=== PATIENT | male | born 1965 | race Caucasian/White ===

== ENCOUNTER → 2018-02-20 08:32 | Outpatient (CLI) | payer BC, SELFPAY ==
--- NOTE | 2018-02-20 | CA_ITS ---
PROCEDURE: 2-D M-mode and color Doppler study INDICATIONS FOR THE TEST: Chest pain+ COPD Heart Murmur Tobacco Smoking Palpitations Fatigue Syncope Edema Hypertension+Diabetes Mellitus Rheumatic Fever SOB DENISE Obesity Hyperlipidemia+ Family History HD+ Additional History PATIENT INFORMATION HEIGHT: 73 WEIGHT: 235 GENDER: Male B/P: 143/92 2-D/M-MODE INTERPRETATION: 2-D MEASUREMENTS OBSERVED VALUES IN CMS Right Ventricular Dimension (RVDd) 2.8 Interventricular Septum (Thickness)(IVsd) 0.9 Left Ventricular Internal Dimensions(LVIDd) 5.2 Left Ventricular Posterior Wall (Thickness)(LVPWd) 0.9 Aortic Root 3.2 Aortic Cusp Separation 2.4 Left Atrial Dimensions (LAD) 3.8 2D 1. Left atrium is mildly enlarged, left ventricle is normal size, mild concentric left ventricular hypertrophy, visually estimated ejection fraction 55% with no regional wall motion abnormality. 2. The right atrium and right ventricle are normal size and contractility. 3. The aortic valve is minimally thickened and fibrosed. 4. The mitral and tricuspid valvular grossly normal. 5. The pulmonic valve is poorly visualized. 6. No significant pericardial effusion noted. DOPPLER INTERROGATION: Doppler interrogation of the aortic, mitral and tricuspid valvular presence of trace aortic, mild mitral and tricuspid regurgitation tricuspid regurgitation jet velocity is inadequate for calculation of the right ventricular systolic pressure, grade 1 diastolic dysfunction seen without tissue Doppler evidence of raised left atrial pressure. CONCLUSION: 1. Mildly enlarged left atrium, normal left ventricular size, visually estimated ejection fraction 55% with no regional wall motion abnormality, mild concentric left ventricular hypertrophy seen, grade 1 diastolic dysfunction seen without tissue Doppler evidence of raised left atrial pressure. 2. Trace aortic, mild mitral and tricuspid regurgitation 3. No significant pericardial effusion.
== END ==
PROVIDERS: PCP Emergency Medicine; Visit Provider Internal Medicine Cardiovascular Disease
DX: R07.2 Precordial pain (principal)
CPT/HCPCS: 93306

== ENCOUNTER 2019-07-25 04:26 | Observation (INO) ==
--- NOTE | 2019-07-25 04:43 | Emergency Department Note ---
ED Disposition Clinical Impression: Unstable angina pectoris, Obesity (BMI 30.0-34.9) HTN (hypertension) Qualifiers: Hypertension type: essential hypertension Qualified Code(s): I10 - Essential (primary) hypertension Disposition: Admitted as Observation Condition on Discharge: Good Referrals: Provider,Referral, [Primary Care Provider] - - Critical Care Critical Care Time: No Attestation: On 07/25/19, the high probability of a clinically significant, sudden or life threatening deterioration of the following system(s) required my full and direct attention, intervention and personal management. The time I documented below is in addition to time spent performing reported procedures but includes the following listed in this critical care notation. Medical Decision Making - Medical Records Medical records reviewed: Yes: I reviewed the patient's medical records. - Jv Inquiry Pt receiving controlled substance: No Vital Signs: 07/25/19 04:28 07/25/19 04:51 07/25/19 05:15 Temperature 98.3 F Temperature Source Oral Pulse Rate [Right] 107 H 84 89 Respiratory Rate 18 18 14 Blood Pressure [Right Arm] 132/98 H 132/85 135/84 Blood Pressure Mean [Right Arm] 109 100 101 Blood Pressure Source [Right Arm] Automatic Cuff Blood Pressure Position [Right Arm] Supine 02 Sat by Pulse Oximetry 96 93 L 97 Oxygen Delivery Method Room Air Room Air Nasal Cannula Oxygen Flow Rate (LPM) 2 - Lab Data Lab results reviewed: Yes: I reviewed the patient's lab results. Lab Results 07/25/19 04:31: WBC 10.9 H, RBC 5.77, Hgb 16.8, Hct 50.0, MCV 86.7, MCH 29.2, MCHC 33.6, RDW 13.5, Plt Count 234, MPV 8.3, Neut % (Auto) 74.7, Lymph % (Auto) 17.0, [place] % (Auto) 5.9, Eos % (Auto) 2.1, Baso % (Auto) 0.4, Neut # (Auto) 8.1 H, Lymph # (Auto) 1.8, [place] # (Auto) 0.6, Eos # (Auto) 0.2, Baso # (Auto) 0.0 07/25/19 04:31: Sodium 137, Potassium 4.0, Chloride 104, Carbon Dioxide 24, Anion Gap 13.0, BUN 19, Creatinine 0.90, Estimated Creat Clear 144, Estimated GFR 88, Est GFR ( Amer) 106, Glucose 129 H, Calcium 9.6, Troponin I < 0.01 Result diagrams: 07/25/19 04:31 07/25/19 04:31 Orders (Tests/Meds): ED MEDICATIONS Generic Name Dose Route Start Last Admin Trade Name Freq PRN Reason Stop Dose Admin Sodium Chloride 1,000 mls @ 999 mls/hr 07/25/19 04:45 07/25/19 04:49 Sod Chlor 0.9% 1000ml Bag IV 07/25/19 05:45 999 mls/hr .Q1H1M RADHA Administration Discontinued Medications Generic Name Dose Route Start Last Admin Trade Name Freq PRN Reason Stop Dose Admin Aspirin 324 mg 07/25/19 04:36 07/25/19 04:48 Aspirin 81mg Chewable Tablet PO 07/25/19 04:37 324 mg ONCE ONE Administration Metoprolol Tartrate 50 mg 07/25/19 05:10 07/25/19 05:12 Lopressor 50mg Tablet PO 07/25/19 05:11 50 mg ONCE ONE Administration Nitroglycerin 0.4 mg 07/25/19 04:36 07/25/19 04:48 Nitrostat 0.4mg Sl Tablet SL 07/25/19 04:37 1 tab ONCE ONE Administration Ondansetron HCl 4 mg 07/25/19 04:36 07/25/19 04:48 Zofran 4mg/2ml Vial IV 07/25/19 04:37 4 mg ONCE ONE Administration Ticagrelor 180 mg 07/25/19 05:19 Brilinta 90mg Tablet PO 07/25/19 05:20 ONCE ONE ORDERS Category Date Time Status Chest XR -- portable [XR chest portable] Stat Exams 07/25/19 04:38 Taken Troponin I Q3H Lab 07/25/19 07:45 Ordered Troponin I Q3H Lab 07/25/19 10:45 Ordered - Radiology Data #1 Image(s): Chest Image Reviewed: Yes I reviewed the patient's radiology image Preliminary Findings: Normal/NAD - ECG Data Tracing #1 Normal Sinus Rhythm: Yes Ischemic changes: non-specific ST-T wave changes - Physician Consults Physician Consulted: alicia Reason -: Pt condition Additional Consult: carla Reason -: Admission Chest Pain HPI - General Chief Complaint: Chest Pain Stated Complaint: chest pain Time Seen by Provider: 07/25/19 04:35 Mode of Arrival: Ambulatory Source of Information: Patient, Medical Record Limitations: No Limitations Description of Symptoms (Recalled from ER Triage Doc. by RN): Pt states his chest pain started about an hour ago 8 of 10 pain, took a nitro at home and pain now 2 of 10 - History of Present Illness HPI narrative: acute onset of chest pain - pressure lasting about 20-25 min - relieved with ntg - has has pain in 2018 with neg cxt - has positive risk factors MD complaint: chest pain indicative of cardiac Onset (ago): hour(s) Duration: now resolved Activity at onset: awoke with symptoms Pain location: substernal Severity: moderate Severity scale (1-10): 8 Quality: heaviness Relieving factors: nitroglycerin Associated symptoms: nausea, diaphoresis, dyspnea Risk Factors for CAD: Hypertension, Hypercholesterolemia, Family Hx of CAD Treatments prior to or on arrival for Cardiac Chest Pain: nitroglycerin - KULDEEP Score for Non-Stemi Age of Patient: 50-59 years old Heart Rate: 90-109 bpm Systolic Blood Pressure: 120-139 mmhg Serum Creatinine: 0.80-1.19 mg/dl CHF [place] Class: I-No CHF Other Risk Factors: None Non-Stemi Risk Score: 97 - Related Data Prior Cardiac Testing/Procedures: Echocardiogram Home Medications Medication Instructions Recorded Confirmed Aspirin [Aspir 81] 81 mg PO DAILY 07/25/19 07/25/19 Benazepril HCl 10 mg PO DAILY 07/25/19 07/25/19 Simvastatin 20 mg PO DAILY 07/25/19 07/25/19 hydroCHLOROthiazide 12.5 mg PO DAILY 07/25/19 07/25/19 [Hydrochlorothiazide 12.5mg Tab] Allergies Allergy/AdvReac Type Severity Reaction Status Date / Time No Known Allergies Allergy Unverified 07/25/19 04:31 [facility] History - Hepatitis A Screen Drug use history?: No High risk sexual behaviors?: No History of sexually transmitted infection?: No Currently employed?: No Childcare worker?: No Do you have indoor plumbing?: Yes Do you have electricity?: Yes Attestation statement:: This patient has been screened for Hepatitis A risk factors. I have reviewed the patient's past medical history: Yes Medical History: Denies:: Diabetes Mellitus Type 1, Diabetes Mellitus Type 2, Internal Pacemaker Other Surgeries: No: Pacemaker - Social History Alcohol Intake: never Occupational Status: employed ROS Obtained: Yes All systems reviewed & no additional complaints - Constitutional Constitutional: Denies fever(s) - Eyes Eyes: Denies change in vision - ENT Ears, Nose, Mouth, and Throat: Denies sore throat - Cardiovascular Cardiovascular: Reports as per HPI, Reports chest pain, Denies dyspnea, Reports radiating jaw, neck or arm pain - Respiratory Respiratory: No cough - Gastrointestinal Gastrointestingal: Reports: nausea - Genitourinary Male Genitourinary: Denies hematuria - Musculoskeletal Musculoskeletal: Denies joint pain - Integumentary/Breasts Skin/Breast: Denies rash - Neurologic Neurologic: Denies seizure-like activity Physical Exam - General General appearance: alert, obese - Head Head exam: normocephalic - Eye Eye exam: Present: PERRL, EOMI. Absent: scleral icterus - ENT ENT exam: Present: mucous membranes moist - Neck Neck exam: Present: trachea midline - Respiratory Respiratory exam: Present: normal lung sounds bilaterally. Absent: respiratory distress - Cardiovascular Cardiovascular exam: Present: regular rate, systolic murmur. Absent: +S4 - Abdominal Exam Abdominal exam: Present: soft - Extremities Exam Extremities exam: Present: full ROM - Neurological Exam Neurological exam: Present: alert, oriented X3, CN II-XII intact - Psychiatric Psychiatric exam: Present: normal affect - Skin Skin exam: Absent: rash
[2019-07-25 04:46] LABS: Basophils % 0.4 % (0.1-2.0); Eosinophils # 0.2 K/mm3 (0.0-0.4); Eosinophils % 2.1 % (0.1-12.0); Hemoglobin 16.8 g/dL (14.1-18.0); Lymphocytes # 1.8 K/mm3 (0.7-4.5); Mean Corpuscular HGB Conc 33.6 g/dL (31.8-35.4); Mean Corpuscular Volume 86.7 fl (80-94); Mean Platelet Volume 8.3 fl (7.4-10.4); Monocytes # 0.6 K/mm3 (0.1-1.0); Monocytes % 5.9 % (1.7-9.3); Neutrophils # 8.1 K/mm3 (1.8-7.8); Neutrophils % 74.7 % (37.0-80.0); Platelet Count 234 K/mm3 (142-424); Red Blood Count 5.77 M/mm3 (4.60-6.20); Red Cell Distribution Width 13.5 % (11.5-17.5); White Blood Count 10.9 K/mm3 (4.8-10.8)
[2019-07-25 04:50] LABS: Blood Urea Nitrogen 19 mg/dl (9-20); Calcium 9.6 mg/dl (8.4-10.2); Carbon Dioxide 24 mmol/L (22.0-30.0); Chloride 104 mmol/L (98-107); Glucose 129 mg/dl (74-100); Sodium 137 mmol/L (136-145)
[2019-07-25 05:36] LABS: Chol/HDL Ratio 3.7 (1-3.5)
--- NOTE | 2019-07-25 07:22 | Pharmacy Consult Notes ---
[facility] Pharmacy VTE Monitoring - Patient Demographics Admission date: 07/25/19 Report Date: 07/25/19 Time: 07:21 Allergies/Adverse Reactions: Patient Allergies No Known Allergies Allergy (Unverified 07/25/19 04:31) Height: 1.85 m Weight: 104.95 kg Patient Problems: Current Active Problems Unstable angina pectoris (Acute) Obesity (BMI 30.0-34.9) (Acute) HTN (hypertension) (Acute) - VTE Risk Labs: VTE Related Lab Results Hgb 16.8 g/dL (14.1-18.0) 07/25/19 04:31 Hct 50.0 % (42.0-52.0) 07/25/19 04:31 Plt Count 234 K/mm3 (142-424) 07/25/19 04:31 BUN 19 mg/dl (9-20) 07/25/19 04:31 Creatinine 0.90 mg/dl (0.66-1.25) 07/25/19 04:31 Estimated Creat Clear 144 mL/min (50-200) 07/25/19 04:31 VTE Score: 2 - Prophylaxis Types of VTE Prophylaxis: TEDS Knee High (JOSÉ ANTONIO HOSE ORDER PLACED)
--- NOTE | 2019-07-25 08:38 | History & Physical Report ---
*Admission Date: 07/25/19 *Chief complaint: Chest pain/acute coronary syndrome *History of present illness: 54-year-old white male with history of hypertension, hyperlipidemia and remote history of chest pain syndrome about 3 years ago that was worked up with a treadmill-based stress test which was reportedly negative. Since that time patient is felt well but awoke early this morning with a crushing sensation on his chest with associated radiation into the left arm. [place] chilled but not sweaty. Did not feel short of air. Took a nitroglycerin tablet on the way to the hospital and after the second nitroglycerin aspirin in the emergency department he felt better. Given risk factors, and a significant family history for heart disease he was admitted to hospital for left heart catheterization given his negative and possibly falsely negative stress testing results 2 years ago. [facility] History I have reviewed the patient's past medical history: Yes Medical History: Reports:: Hyperlipidemia, Hypertension Denies:: Cancer, Diabetes Mellitus Type 1, Diabetes Mellitus Type 2, Internal Pacemaker, MRSA *Have you ever received a pneumonia vaccine?: No *Have you received a flu vaccine this season?: Yes Other Surgeries: Yes: No Previous Surgery. No: Pacemaker Amputation: No Fractures: No - *Social History Educational Level: Completed College Smoking Status: Never smoker Alcohol Intake: never *Occupational Status:: employed Housing: house Household Members: spouse, children *Travel in the last 8 weeks: Outside the [facility] Family Hx:: Coronary Artery Disease, Heart Attack Comment: Significant history of coronary disease. Father has had 2 bypass surge flako. Grandfather and uncle of myocardial infarction at age 50 Review of Systems - Review of Systems Review of systems:: pertinent systems reviewed and negative unless documented below - *Neurologic Denies seizure-like activity Meds Home Medications Medication Instructions Recorded Confirmed Type Aspirin [Aspir 81] 81 mg PO DAILY 07/25/19 07/25/19 History Benazepril HCl 10 mg PO DAILY 07/25/19 07/25/19 History Simvastatin 20 mg PO DAILY 07/25/19 07/25/19 History hydroCHLOROthiazide 18.75 mg PO DAILY 07/25/19 07/25/19 History [Hydrochlorothiazide 12.5mg Tab] Allergies Allergy/AdvReac Type Severity Reaction Status Date / Time No Known Allergies Allergy Unverified 07/25/19 04:31 Exam Vital signs and Labs for Last 24 Hours: Temp Pulse Resp BP Pulse Ox 98.3 F 73 17 131/80 96 07/25/19 07:51 07/25/19 07:51 07/25/19 07:51 07/25/19 07:51 07/25/19 08:12 Laboratory Results - last 24 hr 07/25/19 04:31: WBC 10.9 H, RBC 5.77, Hgb 16.8, Hct 50.0, MCV 86.7, MCH 29.2, MCHC 33.6, RDW 13.5, Plt Count 234, MPV 8.3, Neut % (Auto) 74.7, Lymph % (Auto) 17.0, [place] % (Auto) 5.9, Eos % (Auto) 2.1, Baso % (Auto) 0.4, Neut # (Auto) 8.1 H, Lymph # (Auto) 1.8, [place] # (Auto) 0.6, Eos # (Auto) 0.2, Baso # (Auto) 0.0 07/25/19 04:31: Sodium 137, Potassium 4.0, Chloride 104, Carbon Dioxide 24, Anion Gap 13.0, BUN 19, Creatinine 0.90, Estimated Creat Clear 144, Estimated GFR 88, Est GFR ( Amer) 106, Glucose 129 H, Calcium 9.6, Troponin I < 0.01 07/25/19 04:31: Triglycerides 126, Cholesterol 147, LDL Cholesterol Direct 88.58 L, VLDL Cholesterol 25, HDL Cholesterol 40, Cholesterol/HDL Ratio 3.7 H I & O for Last 24 hours: Intake & Output 07/22/19 07/23/19 07/24/19 07/25/19 11:59 11:59 11:59 11:59 Intake Total 1000 / 1000 Balance 1000 / 1000 Weight 231 lb 6 oz - *Routine HEENT Exam Head: Present: normocephalic Eye: Present: EOMI, PERRL ENT: Present: mucous membranes moist - *Routine Neck Exam Present: supple. Absent: lymphadenopathy - *Routine Respiratory Exam Present: CTA bilaterally - *Routine Cardiovascular Exam Present: RRR - *Routine Abdominal Exam Present: soft, normoactive bowel sounds. Absent: tenderness - *Routine Extremities Exam Absent: cyanosis, clubbing, edema - *Routine Skin Exam Present: warm. Absent: rash - *Routine Neurological Exam Present: alert, oriented X3 Assessment and Plan (1) HTN (hypertension) Current visit: Yes Status: Acute Qualifiers: Hypertension type: essential hypertension Qualified Code(s): I10 - Essential (primary) hypertension Category: Medical Code(s): I10 - Essential (primary) hypertension (2) Unstable angina pectoris Current visit: Yes Status: Acute Category: Medical Code(s): I20.0 - Unstable angina Agree with admission. Troponins negative. Agree with left heart cath. Medication adjustment/prognosis/further diagnostic testing after results of left heart cath today. (3) Hyperlipidemia Current visit: Yes Status: Acute Category: Medical Code(s): E78.5 - Hyperlipidemia, unspecified
--- NOTE | 2019-07-25 13:03 | Discharge Summary ---
General - General Admission date:: 07/25/19 Discharge date: 07/25/19 HPI HPI: 54-year-old white male with history of hypertension, hyperlipidemia and remote history of chest pain syndrome about 3 years ago that was worked up with a treadmill-based stress test which was reportedly negative. Since that time patient is felt well but awoke early this morning with a crushing sensation on his chest with associated radiation into the left arm. [place] chilled but not sweaty. Did not feel short of air. Took a nitroglycerin tablet on the way to the hospital and after the second nitroglycerin aspirin in the emergency department he felt better. Given risk factors, and a significant family history for heart disease he was admitted to hospital for left heart catheterization given his negative and possibly falsely negative stress testing results 2 years ago. Hospital Course Hospital Course: Patient was admitted to hospital. Ruled out for [facility] and left heart catheterization was done because of significant risk factors and symptomatic presentation as noted. Results noted below: ANGIOGRAPHIC RESULTS The left main artery Normal The left anterior descending artery Has proximal and mid vessel mild vascular ectasia accompanied by slow flow The circumflex artery Nondominant with mild luminal irregularities 10% stenosed The right coronary artery Is a large dominant vessel with moderate diffuse vascular ectasia accompanied by slow AMY II flow The FARIA ventriculogram reveals Preserved at 60% The left ventricular end-diastolic pressure 15 mmHg IMPRESSION [id number] coronary disease as described above Mild to moderate vascular ectasia accompanied by slow flow consistent with endothelial dysfunction Preserved ejection fraction Mildly elevated LVEDP PLAN 1. Risk factor modification 2. Treatment of endothelial dysfunction with long-acting nitrates calcium channel blockers and possibly the addition of Ranexa 3. Would also consider noncardiac etiologies for symptomatology Electronically signed by : Jj Gage, 07/25/2019 11:11:08 Patient did well after the procedure. He will be discharged home. I will start omeprazole for prevention of reflux induced nocturnal pain. We will forward records to his regular physician to consider adding long-acting nitrates or calcium channel blockers in the event angina would occur in the future. Objective Vital signs: Temp Pulse Resp BP Pulse Ox 98.6 F 83 16 142/80 H 96 07/25/19 13:00 07/25/19 13:00 07/25/19 13:00 07/25/19 13:00 07/25/19 13:00 no acute distress - *Routine HEENT Exam Head: Present: normocephalic Eye: Present: EOMI, PERRL ENT: Present: mucous membranes moist - *Routine Neck Exam Present: supple - *Routine Respiratory Exam Present: CTA bilaterally - *Routine Cardiovascular Exam Present: RRR - *Routine Abdominal Exam Present: soft, normoactive bowel sounds. Absent: tenderness - *Routine Extremities Exam Absent: cyanosis, clubbing, edema - *Routine Skin Exam Present: warm. Absent: rash - Detailed Eye Exam Eyelids: Bilateral normal inspection Results Labs on day of discharge: Labs from last 24 hours 07/25/19 07/25/19 07/25/19 09:25 04:31 04:31 WBC RBC Hgb Hct MCV MCH MCHC RDW Plt Count MPV Neut % (Auto) Lymph % (Auto) [place] % (Auto) Eos % (Auto) Baso % (Auto) Neut # (Auto) Lymph # (Auto) [place] # (Auto) Eos # (Auto) Baso # (Auto) Sodium 137 Potassium 4.0 Chloride 104 Carbon Dioxide 24 Anion Gap 13.0 BUN 19 Creatinine 0.90 Estimated Creat Clear 144 Estimated GFR 88 Est GFR ( Amer) 106 Glucose 129 H Calcium 9.6 Troponin I < 0.01 < 0.01 Triglycerides 126 Cholesterol 147 LDL Cholesterol Direct 88.58 L VLDL Cholesterol 25 HDL Cholesterol 40 Cholesterol/HDL Ratio 3.7 H 07/25/19 04:31 WBC 10.9 H RBC 5.77 Hgb 16.8 Hct 50.0 MCV 86.7 MCH 29.2 MCHC 33.6 RDW 13.5 Plt Count 234 MPV 8.3 Neut % (Auto) 74.7 Lymph % (Auto) 17.0 [place] % (Auto) 5.9 Eos % (Auto) 2.1 Baso % (Auto) 0.4 Neut # (Auto) 8.1 H Lymph # (Auto) 1.8 [place] # (Auto) 0.6 Eos # (Auto) 0.2 Baso # (Auto) 0.0 Sodium Potassium Chloride Carbon Dioxide Anion Gap BUN Creatinine Estimated Creat Clear Estimated GFR Est GFR ( Amer) Glucose Calcium Troponin I Triglycerides Cholesterol LDL Cholesterol Direct VLDL Cholesterol HDL Cholesterol Cholesterol/HDL Ratio DS: Diagnosis - Discharge Diagnosis (1) HTN (hypertension) Status: Chronic (2) Unstable angina pectoris Status: Ruled-out (3) Hyperlipidemia Status: Chronic Discharge Plan - Patient Discharge Instructions ACTIVITY: Continue current activity DIET: continue same diet Patient Instructions: Heart-Healthy Diet, DI for Angina, DI for Cardiac Catheterization, DI for High Blood Pressure, DI for Surgical Site Infection, DI for Chest Pain - Follow up Plan Follow up with: Filiberto Orona MD [Referring] - 1 month Disposition: Home, Self-Detention Medications: Home Medications Medication Instructions Recorded Confirmed Type Aspirin [Aspir 81] 81 mg PO DAILY 07/25/19 07/25/19 History Benazepril HCl 10 mg PO DAILY 07/25/19 07/25/19 History Omeprazole [Omeprazole 20mg 20 mg PO PC #30 cap 07/25/19 Rx Capsule] Simvastatin 20 mg PO DAILY 07/25/19 07/25/19 History hydroCHLOROthiazide 18.75 mg PO DAILY 07/25/19 07/25/19 History [Hydrochlorothiazide 12.5mg Tab] Prescriptions/Medication Reconciliation: New Omeprazole [Omeprazole 20mg Capsule] 20 mg PO PC #30 cap Continued Simvastatin 20 mg PO DAILY Benazepril HCl 10 mg PO DAILY hydroCHLOROthiazide [Hydrochlorothiazide 12.5mg Tab] 18.75 mg PO DAILY Aspirin [Aspir 81] 81 mg PO DAILY - Problem Reconciliation Problems Reviewed?: Yes
--- NOTE | 2019-07-26 17:30 | Electrocardiograph Report ---
APPROVED REPORT Exam: Resting ECG HR:97 bpm ECG Measurements Heart Rate 97 AXES [place] 170 P 62 QRSd 92 QRS 82 QT 352 T66 QTc 447 <Conclusion> Normal sinus rhythm Normal ECG Electronically signed by : Ayush Almeida, 07/26/2019 17:30:36
== END 2019-07-25 14:58 | disposition home or self-care (01) ==
LOC: ER 04:26 → 2ND 04:26
PROVIDERS: ADMIT Internal Medicine Adolescent Medicine; ATTEND Internal Medicine Adolescent Medicine
CPT/HCPCS: 71010; 71045; 80048; 80061; 84484; 85025; 93005; 93458; 96365; 96375; 99152; 99284; C1725; C1769; G0378; J1644; J2405; Q9967

== ENCOUNTER 2023-06-09 08:09 | Outpatient (CLI) | payer OTHER, SELFPAY ==
[2023-06-09 08:18] LABS: Microscopic, Urine URINE MICROSCOPIC (MICROSCOPIC)
[2023-06-09 08:36] LABS: Basophils % 0.4 % (0.1-2.0); Eosinophils # 0.1 K/mm3 (0.0-0.4); Eosinophils % 2.2 % (0.1-12.0); Hematocrit 50.8 % (42.0-52.0); Hemoglobin 17.9 g/dL (14.1-18.0); Lymphocytes # 1.8 K/mm3 (0.7-4.5); Lymphocytes % 33.1 % (10-50); Mean Corpuscular HGB Conc 35.3 g/dL (31.8-35.4); Mean Corpuscular Hemoglobin 30.6 pg (27.0-31.2); Mean Corpuscular Volume 86.7 fl (80-94); Monocytes # 0.5 K/mm3 (0.1-1.0); Monocytes % 8.2 % (1.7-9.3); Neutrophils # 3.1 K/mm3 (1.8-7.8); Neutrophils % 56.1 % (37.0-80.0); Platelet Count 198 K/mm3 (142-424); Red Blood Count 5.86 M/mm3 (4.60-6.20); Red Cell Distribution Width 13.5 % (11.5-17.5); White Blood Count 5.5 K/mm3 (4.8-10.8)
[2023-06-09 08:45] LABS: Appearance,Urine CLEAR (Clear); Bilirubin,Urine Negative (Negative); Blood, Urine 1+ (Negative); Color,Urine YELLOW (Yellow); Glucose,Urine (UA) Negative (Negative); Ketones,Urine Negative (Negative); Leukocyte Esterase,Urine Negative (Negative); Nitrate,Urine Negative (Negative); Protein,Urine Negative (Negative); Specific Gravity, Urine 1.025 (1.005-1.030); Urobilinogen,Urine 0.2 EU/dl (0.2)
[2023-06-09 08:59] LABS: Bacteria,Urine Trace /lpf; RBC,Urine Occasional #/hpf (0-3); Squamous Epithelial Cell,Urine Occasional #/hpf (0-5)
[2023-06-09 09:04] LABS: Alanine Aminotransferase 32 U/L (12-78); Albumin Level 4.5 g/dl (3.5-5.0); Alkaline Phosphatase 65 U/L (38-126); Anion Gap 9.3 mEq/L (5-15); Aspartate Amino Transferase 28 U/L (17-59); Blood Urea Nitrogen 25 mg/dl (9-20); Calcium 9.7 mg/dl (8.4-10.2); Carbon Dioxide 26 mmol/L (22.0-30.0); Chloride 107 mmol/L (98-107); Cholesterol 151 mg/dl (140-200); Estimated Glomerular Filt Rate 87 ml/min (>60); GFR (African American) 105 ML/MIN (>60); Globulin 2.2 g/dL (1.3-3.2); Glucose 137 mg/dl (74-100); HDL Cholesterol 38 mg/dl (40-60); Potassium 4.3 mmoL/L (3.5-5.1); Sodium 138 mmol/L (136-145); Total Protein,Serum 6.7 g/dl (6.3-8.2); Triglycerides 119 mg/dl (30-150); VLDL Cholesterol 24 mg/dL (0-40)
[2023-06-09 09:06] LABS: Erythrocyte Sedimentation Rate 2 mm/hr (0-20)
[2023-06-09 09:16] LABS: Direct LDL Cholesterol 78.67 mg/dL (100-129)
[2023-06-09 09:36] LABS: Prostate Specific Ag Screen 1.8 ng/ml (0.0-4.0); Thyroid Stimulating Hormone 1.41 uIU/mL (0.465-4.68)
[2023-06-09 10:11] LABS: Vitamin B12 594 pg/mL (239-931)
== END 2023-06-09 23:59 ==
LOC: LAB 08:11
PROVIDERS: PCP Emergency Medicine; Visit Provider Emergency Medicine
DX: I10 Essential (primary) hypertension (principal); E78.5 Hyperlipidemia, unspecified; M19.90 Unspecified osteoarthritis, unspecified site; N40.1 Benign prostatic hyperplasia with lower urinary tract symptoms; E66.9 Obesity, unspecified; Z12.5 Encounter for screening for malignant neoplasm of prostate; Z82.49 Family history of ischemic heart disease and other diseases of the circulatory system; Z79.899 Other long term (current) drug therapy
CPT/HCPCS: 36415; 80053; 80061; 81001; 82607; 82746; 84443; 85025; 85651; G0103

== ENCOUNTER 2024-07-01 09:00 | Outpatient (CLI) | payer OTHER, SELFPAY ==
[2024-07-01 09:06] LABS: Microscopic, Urine URINE MICROSCOPIC (MICROSCOPIC)
[2024-07-01 09:23] LABS: Basophils % 0.6 % (0.1-2.0); Eosinophils # 0.2 K/mm3 (0.0-0.4); Eosinophils % 3.7 % (0.1-12.0); Hemoglobin 16.9 g/dL (14.1-18.0); Lymphocytes # 1.4 K/mm3 (0.7-4.5); Mean Corpuscular HGB Conc 34.5 g/dL (31.8-35.4); Mean Corpuscular Hemoglobin 29.3 pg (27.0-31.2); Mean Corpuscular Volume 84.9 fl (80-94); Mean Platelet Volume 10.7 fl (7.4-10.4); Monocytes # 0.5 K/mm3 (0.1-1.0); Monocytes % 9.4 % (1.7-9.3); Neutrophils # 2.8 K/mm3 (1.8-7.8); Neutrophils % 57.1 % (37.0-80.0); Platelet Count 218 K/mm3 (142-424); Red Blood Count 5.77 M/mm3 (4.60-6.20); Red Cell Distribution Width 12.6 % (11.5-17.5); White Blood Count 4.9 K/mm3 (4.8-10.8)
[2024-07-01 09:52] LABS: Erythrocyte Sedimentation Rate 1 mm/hr (0-20)
[2024-07-01 11:27] LABS: Alanine Aminotransferase 33 U/L (12-78); Albumin Level 4.6 g/dl (3.5-5.0); Albumin/Globulin Ratio 2.3 (1.1-1.8); Alkaline Phosphatase 59 U/L (38-126); Anion Gap 12.3 mEq/L (5-15); Appearance,Urine Clear (Clear); Aspartate Amino Transferase 29 U/L (17-59); Bilirubin,Total 1.1 mg/dl (0.2-1.3); Blood Urea Nitrogen 21 mg/dl (9-20); Calcium 9.1 mg/dl (8.4-10.2); Carbon Dioxide 21 mmol/L (22.0-30.0); Chloride 109 mmol/L (98-107); Chol/HDL Ratio 3.5 (1-3.5); Cholesterol 135 mg/dl (140-200); Color,Urine Yellow (Yellow); Estimated Glomerular Filt Rate 86 ml/min (>60); GFR (African American) 105 ML/MIN (>60); Glucose 124 mg/dl (74-100); Glucose,Urine (UA) Negative (Negative); HDL Cholesterol 39 mg/dl (40-60); PH,Urine 6.5 (5.0-8.5); Potassium 4.3 mmoL/L (3.5-5.1); Protein,Urine Negative (Negative); Sodium 138 mmol/L (136-145); Specific Gravity, Urine >= 1.030 (1.005-1.030); Total Protein,Serum 6.6 g/dl (6.3-8.2); Triglycerides 85 mg/dl (30-150); VLDL Cholesterol 17 mg/dL (0-40)
[2024-07-01 11:28] LABS: Bilirubin,Urine Negative (Negative); Blood, Urine Trace (Negative); Ketones,Urine Negative (Negative); Leukocyte Esterase,Urine Negative (Negative); Nitrate,Urine Negative (Negative)
[2024-07-01 11:35] LABS: Squamous Epithelial Cell,Urine Occasional #/hpf (0-5); WBC,Urine Occasional #/hpf (0-3)
[2024-07-01 11:59] LABS: Prostate Specific Ag Screen 1.7 ng/ml (0.0-4.0); Thyroid Stimulating Hormone 0.65 uIU/mL (0.465-4.68)
[2024-07-01 12:18] LABS: Vitamin B12 644 pg/mL (239-931)
== END 2024-07-01 23:59 | disposition home or self-care (01) ==
LOC: LAB 09:01
PROVIDERS: PCP Emergency Medicine; Visit Provider Emergency Medicine
DX: E78.5 Hyperlipidemia, unspecified (principal)
CPT/HCPCS: 36415; 80053; 80061; 81001; 82607; 82746; 84443; 85025; 85651; G0103